=== PATIENT | female | born 1955 | race Caucasian/White ===

== ENCOUNTER 2016-05-11 20:25 | Inpatient (IN) | payer MEDICAID ==
[~2016-05-11] VITALS: Ht 160 cm; Wt 86.0 kg
[2016-05-11 21:37] LABS: BASOPHIL # 0.1 10^3/ul (0.0-0.1); BASOPHILS % 0.3 % (0.0-2.0); CONDITION 1; EOSINOPHILS % 0.1 % (0.0-7.0); HEMATOCRIT 38.3 % (37.0-47.0); HEMOGLOBIN 12.8 g/dl (12.0-16.0); LYMPHOCYTES # 1.5 10^3/ul (0.8-2.9); LYMPHOCYTES % 9.7 % (15.0-51.0); MEAN CORPUSCULAR HEMOGLOBIN 28.5 pg (29.0-33.0); MEAN CORPUSCULAR HGB CONC 33.4 g/dl (32.0-37.0); MEAN CORPUSCULAR VOLUME 85.4 fl (82.0-101.0); MONOCYTE # 0.8 10^3/ul (0.3-0.9); MONOCYTES % 5.3 % (0.0-11.0); NEUTROPHIL # 13.4 10^3/ul (1.6-7.5); NEUTROPHILS % 84.6 % (39.0-77.0); PLATELET COUNT 333 10^3/UL (140-440); RED BLOOD COUNT 4.49 10^6/ul (4.20-5.40); RED CELL DISTRIBUTION WIDTH 13.5 % (11.5-14.5); UNCORRECTED WBC 15.8 10^3/ul (4.8-10.8); WHITE BLOOD COUNT 15.8 10^3/ul (4.8-10.8)
[2016-05-11 21:38] LABS: ADD UMIC YES; URINE BILIRUBIN (Dip) NEGATIVE (NEGATIVE); URINE BLOOD (Dip) 2+ (NEGATIVE); URINE COLOR LT. YELLOW (YELLOW); URINE GLUCOSE (Dip) >=1000 % (NEGATIVE); URINE KETONES (Dip) 15 (NEGATIVE); URINE LEUKOCYTE ESTERASE (Dip) NEGATIVE (NEGATIVE); URINE NITRITE (Dip) NEGATIVE (NEGATIVE); URINE TOTAL PROTEIN (Dip) NEGATIVE (NEGATIVE); URINE UROBILINOGEN (Dip) 0.2 E.U./dL (0.1-1.0)
[2016-05-11 21:41] LABS: ALBUMIN 4.3 g/dl (3.3-4.9); POTASSIUM 3.8 mmol/L (3.5-5.1)
[2016-05-11 21:43] LABS: CREATININE 1.18 mg/dl (0.44-1.00)
[2016-05-11 21:44] LABS: BILIRUBIN,INDIRECT 0.4 mg/dl (0-1.1); BILIRUBIN,TOTAL 0.4 mg/dl (0.2-1.3); CALCIUM 12.7 mg/dl (8.4-10.2); TOTAL PROTEIN 8.6 g/dl (6.1-8.1)
[2016-05-11 22:05] LABS: BACTERIA,URINE FEW; SQUAMOUS EPITHELIAL CELL,UR FEW; URINE RBCS 25-50 /HPF ([, 0])
--- NOTE | 2016-05-11 22:11 | ERA ---
ER Documentation Chief Complaint Date/Time DATE: 05/11/16 TIME: 22:11 Chief Complaint HIGH BLOOD GLUCOSE FROM CLINIC >500 HPI The patient is a 61-year-old female, presenting to the ER because of dizziness, dry mouth for 3 days. She went to the clinic where her glucose was above 500, therefore she was sent to the ER for further evaluation. She is supposed to take Amaryl 4 mg daily, however she did not take the medication for a week. She complains of dizziness, denies fever, neck pain, chest pain, dyspnea, abdominal pain, vomiting, diarrhea, complains of dysuria. She does not smoke, drink Past medical history: Diabetes mellitus Past surgical history: None ROS All systems reviewed and are negative except as per history of present illness. Medications Home Meds Reported Medications Glimepiride* (Amaryl*) 4 Mg Tablet, 4 MG PO WITH BREAKFAST, TAB 05/11/16 Allergies Allergies: Coded Allergies: Penicillins (Unverified Allergy, Unknown, 05/11/16) PMhx/Soc Medical and Surgical Hx: pt denies Surgical Hx Hx Alcohol Use: No Hx Substance Use: No Hx Tobacco Use: No Smoking Status: Unknown if ever smoked Physical Exam Vitals Vital Signs Date Time Temp Pulse Resp B/P Pulse Ox O2 Delivery O2 Flow Rate FiO2 05/11/16 21:10 99.8 92 20 132/81 100 Room Air 05/11/16 20:32 99.8 68 20 123/71 99 Physical Exam Const: No acute distress. Head: Atraumatic. Eyes: Normal Conjunctiva. ENT: Normal External Ears, Nose and Mouth. Neck: Full range of motion. No meningismus. Resp: Clear to auscultation bilaterally. Cardio: Regular rate and rhythm, no murmurs. Abd: Soft, non distended, normal bowel sounds, non tender. Skin: No petechiae or rashes. Back: No midline or flank tenderness. Ext: No cyanosis, or edema. Neur: Awake and alert. No focal deficit Psych: Normal Mood and Affect. Result Diagram: 05/11/16211405/11/162114 Results 24 hrs Laboratory Tests Test 05/11/16 21:15 Alanine Aminotransferase (ALT/SGPT) 14IU/L Albumin 4.3g/dl Albumin/Globulin Ratio 1.00 Alkaline Phosphatase 204IU/L Anion Gap 27 Aspartate Amino Transf (AST/SGOT) 13IU/L Basophils # 0.110^3/ul Basophils % 0.3% Blood Morphology Comment Blood Urea Nitrogen 34mg/dl Calcium Level 12.7mg/dl Carbon Dioxide Level 24mmol/L Chloride Level 88mmol/L Creatine Kinase < 20IU/L Creatinine 1.18mg/dl Direct Bilirubin 0.00mg/dl Eosinophils # 0.010^3/ul Eosinophils % 0.1% Globulin 4.30g/dl Glucose Level 719mg/dl Hematocrit 38.3% Hemoglobin 12.8g/dl Indirect Bilirubin 0.4mg/dl Lipase 103U/L Lymphocytes # 1.510^3/ul Lymphocytes % 9.7% Mean Corpuscular Hemoglobin 28.5pg Mean Corpuscular Hemoglobin Concent 33.4g/dl Mean Corpuscular Volume 85.4fl Mean Platelet Volume 11.0fl Monocytes # 0.810^3/ul Monocytes % 5.3% Neutrophils # 13.410^3/ul Neutrophils % 84.6% Nucleated Red Blood Cells # 0.010^3/ul Nucleated Red Blood Cells % 0.0/100WBC Platelet Count 52327^3/UL Potassium Level 3.8mmol/L Red Blood Count 4.4910^6/ul Red Cell Distribution Width 13.5% Sodium Level 135mmol/L Total Bilirubin 0.4mg/dl Total Protein 8.6g/dl Urine Bacteria FEW Urine Bilirubin NEGATIVE Urine Clarity SLIGHTLY CLOUDY Urine Color LT. YELLOW Urine Glucose >=1000% Urine Hemoglobin 2+ Urine Ketones 15 Urine Leukocyte Esterase NEGATIVE Urine Microscopic RBC 25-50/HPF Urine Microscopic WBC 5-10/HPF Urine Nitrite NEGATIVE Urine Specific [place] 1.010 Urine Squamous Epithelial Cells FEW Urine Total Protein NEGATIVE Urine Urobilinogen 0.2 E.U./dL Urine pH 6.0 White Blood Count 15.810^3/ul Current Medications Medications (Trade) Dose Ordered Sig/Adam Route PRN Reason Start Time Stop Time Status Last Admin Dose Admin Insulin Human Regular 22 unit 22 unit ONCE ONCE SC 05/11/16 22:30 05/11/16 22:31 DC 05/11/16 22:33 Sodium Chloride 1,000 ml @ 1,000 mls/hr Q1H ONCE IV 05/11/16 22:30 05/11/16 23:29 05/11/16 22:31 Sodium Chloride (NS) 1,000 ml @ 1,000 mls/hr Q1H ONCE IV 05/11/16 22:30 05/11/16 23:29 05/11/16 22:31 Procedures/MDM MEDICAL MAKING DECISION: The patient is a 60-year-old female, presenting with acute hyperglycemic hyperosmolar nonketotic state. She was treated with 2 L normal saline, regular insulin 22 units subcutaneously with good response. The differential diagnoses considered include but are not limited to DKA, pneumonia , cystitis, rhabdomyolysis Departure Diagnosis: Primary Impression: Uncontrolled type 2 diabetes mellitus with hyperosmolar nonketotic hyperglycemia Condition: Stable Comments I discussed the findings with the patient. I discussed the patient with the on- call hospitalist Dr. Singh who was made aware of the lab, the treatment, the patient condition. The patient is admitted to telemetry at 11 PM REGAN BROTHERS MD May 11, 2016 22:11
[2016-05-11] MEDS ORDERED: GLIM4TAB55 PO (22:16)
[2016-05-11] MEDS ORDERED: SOD CHLORIDE 0.9% 1,000 ML IV ONE ×2 (22:30)
[2016-05-11] MEDS ORDERED: INSULIN REGULAR, HUMAN 100 UNIT/1 ML 3ML VIAL SC ONE (22:30)
--- NOTE | 2016-05-11 23:23 | RADRPT ---
PROCEDURE: XR Chest. CLINICAL INDICATION: Shortness of breath TECHNIQUE: Single frontal view of the chest was obtained. COMPARISON: None. FINDINGS: The cardiomediastinal silhouette is normal size. Pulmonary vasculature is within normal limits. Th ere is mild increased density in the lateral left lower lung likely relating to overlying soft tissu es.. No signs of pleural fluid or pneumothorax are seen. The osseous structures and soft tissues are unre markable. IMPRESSION: No evidence for active cardiopulmonary disease. RPTAT: HBST .Chetan Fountain MD, MD Date Time Electronically viewed and signed by .Chetan Fountain MD, on 05/11/2016 23:23 .T/
[2016-05-11] MEDS ORDERED: LORAZEPAM 2 MG INJ IV PRN (23:30)
[2016-05-11] MEDS ORDERED: NACL 0.9% 3 ML SYG IV SCH (23:30)
[2016-05-11] MEDS ORDERED: ACETAMINOPHEN 325 MG TAB PO PRN (23:30)
[2016-05-11] MEDS ORDERED: DOCUSATE SODIUM 100 MG CAP PO PRN (23:30)
[2016-05-11] MEDS ORDERED: NITROGLYCERIN (SL) 0.4 MG TAB SL PRN (23:30)
[2016-05-11] MEDS ORDERED: ONDANSETRON 4 MG INJ IV PRN (23:30)
[2016-05-11] MEDS ORDERED: morphine 2 MG INJ IV PRN (23:30)
--- NOTE | 2016-05-11 23:37 | HP ---
Date/Time of Note Date/Time of Note DATE: 05/11/16 TIME: 23:31 Assessment/Plan VTE Prophylaxis VTE Prophylaxis Intervention: LMWH Lines/Catheters IV [facility]ter [facility] (from [facility]): Saline Lock Assessment/Plan Assessment/Plan 61 yo female with a past medical history of type II DM who presents with malaise and hyperglycemia. 1. [facility] - will admit the patient to telemetry - start lantus/novolog, monitor acute mental status changes, IVF, hgba1c, lipid panel, magnesium/TSH levels, diabetic education. 2. Leukocytosis - viral vs reactive - monitor trend - no active infectious site noted 3. Acute on possible chronic renal failure - continue with IVF - most likely due to dehydration 4. Metabolic Acidosis 2/2 #1 - monitor changes 5. GI ppx - pepcid po 6. DVT ppx - lovenox answered all of her questions. as per clinical course. this history and physical took greater then 45 minutes to complete HPI/ROS Admit Date/Time Admit Date/Time 05/11/2016, 11:31 pm Hx of Present Illness 61 yo female with a past medical history of type II DM who presents with malaise and hyperglycemia. As per the patient she has not taken her Amaryl ( Glimepiride) for the last 8 days because she ran out. Since then, she has had polydipsia, polyuria, polyphagia like symptoms. She also complains of generalized weakness, headaches, shortness of breath, diaphoresis, and nausea with no vomiting. She denies any loss of consciousness, fevers/chills, diarrhea/ constipation, sick contacts or other constitutional symptoms. ED course: 22 unit regular insulin, 2 L NS bolus ROS 14 point review of systems completed, please refer to HPI for any positive findings PMH/Family/Social Past Medical History Medical History: diabetes Past Surgical History Past Surgical Hx: cholecystectomy Family History Significant Family History: no pertinent family hx Social History Alcohol Use: none Smoking Status: Never smoker Drug Use: none Exam/Review of Systems Vital Signs Vitals Vital Signs Date Time Temp Pulse Resp B/P Pulse Ox O2 Delivery O2 Flow Rate FiO2 05/11/16 21:10 99.8 92 20 132/81 100 Room Air Exam Exam Gen Tara: mild distress 2/2 to malaise, AAOx4 HEENT: NC/AT, PERRLA, EOMI, no pharyngeal erythema, no tonsillar exudates, no lymphadenopathy, no JVD, no carotid bruits NECK: supple, no thyromegaly THORAX: symmetrical, no obvious deformities CV: S1S2, RRR, no M/G/R Lungs: CTAB no W/C/R/R Abd: soft, NT/ND, +BS, no rebound, no guarding, neg HSM EXT: no edema, no ecchymosis, no clubbing, FROM, bilateral lower extremity varicosities Neuro: CN II-XII grossly intact, no focal deficits Psych: good mentation, alert and oriented, good mood and affect Skin: C/D/I Labs Result Diagram: 05/11/16211405/11/162114 KHALIDA LOCK MD May 11, 2016 23:37
[2016-05-12] MEDS ORDERED: DEXTROSE 50% 50 ML SYRINGE IV PRN ×2 (03:00)
[2016-05-12] MEDS ORDERED: GLUCOSE GEL 15 GRAM TUBE BUCCAL PRN (03:00)
[2016-05-12] MEDS ORDERED: GLUCAGON 1 MG INJ IM PRN (03:00)
[2016-05-12] MEDS ORDERED: GLUCOSE GEL 15 GRAM TUBE PO PRN ×2 (03:00)
[2016-05-12] MEDS: SOD CHLORIDE 0.9% 1,000 ML IV SCH ×2 (03:17→12:50)
[2016-05-12 04:18] LABS: CHOL/HDL RATIO 3.8 RATIO; MAGNESIUM 1.4 mg/dl (1.7-2.5)
[2016-05-12 04:24] LABS: CREATINE KINASE < 20 IU/L (23-200)
[2016-05-12 04:27] LABS: CK-MB 0.88 ng/ml (0.0-2.4)
[2016-05-12 04:30] LABS: TROPONIN-I 0.013 ng/ml (0.00-0.12)
[2016-05-12 04:44] LABS: POTASSIUM 3.1 mmol/L (3.5-5.1)
[2016-05-12 04:46] LABS: CREATININE 0.81 mg/dl (0.44-1.00)
[2016-05-12 04:47] LABS: CALCIUM 12.2 mg/dl (8.4-10.2)
[2016-05-12 04:49] LABS: THYROID STIMULATING HORMONE 0.31 MIU/L (0.465-4.680)
[2016-05-12 04:56] LABS: CK-MB 0.95 ng/ml (0.0-2.4)
[2016-05-12 04:59] LABS: TROPONIN-I 0.015 ng/ml (0.00-0.12)
[2016-05-12 05:20] LABS: BASOPHILS % 0.4 % (0.0-2.0); EOSINOPHILS % 0.3 % (0.0-7.0); HEMATOCRIT 33.9 % (37.0-47.0); HEMOGLOBIN 11.5 g/dl (12.0-16.0); LYMPHOCYTES % 17.1 % (15.0-51.0); MEAN CORPUSCULAR HEMOGLOBIN 28.5 pg (29.0-33.0); MEAN CORPUSCULAR VOLUME 83.8 fl (82.0-101.0); MEAN PLATELET VOLUME 10.1 fl (7.4-10.4); MONOCYTE # 1.1 10^3/ul (0.3-0.9); MONOCYTES % 9.3 % (0.0-11.0); NEUTROPHIL # 8.4 10^3/ul (1.6-7.5); NEUTROPHILS % 72.9 % (39.0-77.0); PLATELET COUNT 314 10^3/UL (140-440); RED BLOOD COUNT 4.05 10^6/ul (4.20-5.40); RED CELL DISTRIBUTION WIDTH 13.1 % (11.5-14.5); UNCORRECTED WBC 11.6 10^3/ul (4.8-10.8); WHITE BLOOD COUNT 11.6 10^3/ul (4.8-10.8)
[2016-05-12 05:29] LABS: CONDITION 1
[2016-05-12] MEDS: INSULIN ASPART [NOVOLOG] 3 ML PEN SC SCH ×7 (08:18→20:44)
[2016-05-12 09:40] VITALS: TEMP 98.6
[2016-05-12] MEDS: FAMOTIDINE 20 MG TAB PO SCH (11:24)
[2016-05-12] MEDS: HEPARIN 5,000 UNIT/0.5 ML SYG SC SCH ×2 (11:26→20:22)
[2016-05-12 11:38] VITALS: Ht 160 cm; Wt 86.0 kg
[2016-05-12] MEDS ORDERED: OXYCODONE/ACETAMINOPHEN (5/325) TAB PO PRN (16:00)
--- NOTE | 2016-05-12 17:21 | PN ---
DATE: 05/12/2016 SUBJECTIVE: Internal medicine followup note. Ms. Davison remains stable following admission from the emergency room. Glucose remained elevated; however, down from 700 to 200 to 300 range. She is tole rating p.o. diet and appears relatively comfortable. PHYSICAL EXAMINATION: VITAL SIGNS: Temperature 98, pulse 83, blood pressure 135/76, O2 saturation 96% on room air. NECK: Supple. No JVD or lymphadenopathy. CARDIAC: S1, S2, no added sounds or murmurs. CHEST: Diminished air entry bilaterally. ABDOMEN: Soft, nontender. No guarding or rebound. EXTREMITIES: No cyanosis, clubbing, edema. NEUROLOGIC: Grossly intact. No focal deficits. LABORATORY DATA: White count 11.6, hemoglobin 11.5, platelets 314, BUN 28, creatinine 0.81. IMPRESSION AND PLAN: 1. A 61-year-old lady with a history of diabetes who had run out of her oral medications. Presente d with severe hyperglycemia, commenced on NovoLog and Lantus now slowly improving glycemic managemen t. The patient to continue with IV insulin for now. May benefit from endocrinology consult and we are HbA1C at present. 2. Continue deep venous thrombosis and gastrointestinal prophylaxis. Continue IV fluids and correc tion of electrolytes. Dictated By: CAMMY GUNTER/BHAVANI Conf#: [id number] DID#: [id number]
[2016-05-12 19:38] VITALS: BP 137/84; RESP 18
[2016-05-12] MEDS: INSULIN GLARGINE [LANtus] 3 ML PEN SC SCH (20:43)
[2016-05-12] MEDS ORDERED: INSULIN ASPART [NOVOLOG] 3 ML PEN SC ONE (21:00)
[2016-05-12 22:13] VITALS: PULSE 84
[2016-05-13] MEDS: ACCUCHECK AT 2AM (Patients on SS coverage) XX SCH (02:11)
[2016-05-13] MEDS ORDERED: INSULIN ASPART [NOVOLOG] 3 ML PEN SC ONE (02:30)
[2016-05-13] MEDS: SOD CHLORIDE 0.9% 1,000 ML IV SCH (05:11)
[2016-05-13 06:38] LABS: CREATININE 0.89 mg/dl (0.44-1.00)
[2016-05-13 06:45] LABS: BASOPHILS % 0.2 % (0.0-2.0); HEMATOCRIT 37.1 % (37.0-47.0); HEMOGLOBIN 12.7 g/dl (12.0-16.0); LYMPHOCYTES # 1.5 10^3/ul (0.8-2.9); LYMPHOCYTES % 11.6 % (15.0-51.0); MEAN CORPUSCULAR HEMOGLOBIN 29.5 pg (29.0-33.0); MEAN CORPUSCULAR HGB CONC 34.1 g/dl (32.0-37.0); MEAN CORPUSCULAR VOLUME 86.5 fl (82.0-101.0); MEAN PLATELET VOLUME 11.2 fl (7.4-10.4); MONOCYTE # 0.8 10^3/ul (0.3-0.9); NEUTROPHIL # 10.9 10^3/ul (1.6-7.5); NEUTROPHILS % 82.2 % (39.0-77.0); PLATELET COUNT 309 10^3/UL (140-440); RED BLOOD COUNT 4.29 10^6/ul (4.20-5.40); RED CELL DISTRIBUTION WIDTH 13.3 % (11.5-14.5); UNCORRECTED WBC 13.2 10^3/ul (4.8-10.8); WHITE BLOOD COUNT 13.2 10^3/ul (4.8-10.8)
[2016-05-13 06:57] LABS: CALCIUM 13.1 mg/dl (8.4-10.2); POTASSIUM 2.7 mmol/L (3.5-5.1)
[2016-05-13 07:20] LABS: CONDITION 1
[2016-05-13 08:10] VITALS: BP 133/83; RESP 20
[2016-05-13] MEDS: POTASSIUM CHLORIDE (SR) 20 MEQ TAB PO SCH ×2 (08:26→21:25)
[2016-05-13] MEDS: FAMOTIDINE 20 MG TAB PO SCH (08:26)
[2016-05-13] MEDS: HEPARIN 5,000 UNIT/0.5 ML SYG SC SCH ×2 (08:27→21:32)
[2016-05-13] MEDS: INSULIN ASPART [NOVOLOG] 3 ML PEN SC SCH ×7 (08:28→21:31)
--- NOTE | 2016-05-13 12:47 | PN ---
Date/Time of Note Date/Time of Note DATE: 05/13/16 TIME: 12:43 Assessment/Plan VTE Prophylaxis VTE Prophylaxis Intervention: other Lines/Catheters IV [facility]ter [facility] (from [facility]): Peripheral IV Assessment/Plan Problems: (1) Hypokalemia Status: Acute Comment: Patient is also hypomagnesemic. I will have to correct this and the potassium she is receiving both oral and IV. In addition I believe she is still a bit dehydrated. She is not ready to be discharged on the basis of this hypokalemia we will recheck her in the morning (2) Hypomagnesemia Status: Acute Comment: She received a dose of IV magnesium to help correct for this which would also help with the hypokalemia (3) Hypercalcemia Status: Chronic Comment: The patient initially stated that she had no known problems with this however when I asked the question from a different direction she states that she has been told about abnormal calcium levels in the bloodstream and in the bones at home in [facility]. This may be elevated due to dehydration either way I am going to try and keep an eye on this. (4) Hypophosphatemia Status: Acute Comment: This is consistent with primary hyperparathyroidism (5) Uncontrolled type 2 diabetes mellitus with hyperosmolar nonketotic hyperglycemia Status: Acute Comment: Adjusting medications to get her under control Subjective 24 Hr Interval Summary Free Text/Dictation Patient pleasant and sitting in bed. Constitutional: no complaints Respiratory: no complaints Cardiovascular: no complaints Gastrointestinal: no complaints Exam/Review of Systems Vital Signs Vitals Vital Signs Date Time Temp Pulse Resp B/P Pulse Ox O2 Delivery O2 Flow Rate FiO2 05/13/16 08:10 97.9 98 20 133/83 98 05/12/16 09:40 Room Air Intake and Output 05/12/16 05/12/16 05/13/16 15:00 23:00 07:00 Intake Total 820 ml 1220 ml Balance 820 ml 1220 ml Exam Constitutional: alert Respiratory: clear to auscultation, normal air movement Cardiovascular: nl pulses, regular rate and rhythm Gastrointestinal: nl liver, spleen, non-tender, soft Results Result Diagram: 05/13/16 0508 05/13/16 0508 Results 24 hrs Laboratory Tests Test 05/12/16 12:44 05/12/16 17:29 05/12/16 20:26 05/13/16 01:58 Bedside Glucose 309 H 242 H 376 H 326 H Test 05/13/16 05:08 05/13/16 07:59 05/13/16 11:53 Anion Gap 20 H Basophils # 0.0 Basophils % 0.2 Blood Morphology Comment Blood Urea Nitrogen 21 H Calcium Level 13.1 *H Carbon Dioxide Level 26 Chloride Level 101 Creatinine 0.89 Eosinophils # 0.0 Eosinophils % 0.0 Glucose Level 283 H Hematocrit 37.1 Hemoglobin 12.7 Lymphocytes # 1.5 Lymphocytes % 11.6 L Magnesium Level 1.0 L Mean Corpuscular Hemoglobin 29.5 Mean Corpuscular Hemoglobin Concent 34.1 Mean Corpuscular Volume 86.5 Mean Platelet Volume 11.2 H Monocytes # 0.8 Monocytes % 6.0 Neutrophils # 10.9 H Neutrophils % 82.2 H Nucleated Red Blood Cells # 0.0 Nucleated Red Blood Cells % 0.0 Phosphorus Level 2.0 L Platelet Count 309 Potassium Level 2.7 *L Red Blood Count 4.29 Red Cell Distribution Width 13.3 Sodium Level 144 White Blood Count 13.2 H Bedside Glucose 262 H 293 H Medications Medications Current Medications Sodium Chloride (NS) 1,000 ml @ 75 mls/hr [id number] IV Last administered on 05/13 05:11; Admin Dose 75 MLS/HR; Start 05/11/16 at 23:27 Lorazepam (Ativan) 0.5 mg Q6H PRN IV ANXIETY; Start 05/11/16 at 23:30 Ondansetron HCl (Zofran Inj) 4 mg Q6H PRN IV NAUSEA AND/OR VOMITING; Start 04/15 at 23:30 Nitroglycerin (Nitroglycerin (Sl Tab) 0.4 Mg) 1 tab Q5M PRN SL CHEST PAIN; Start 05/11/16 at 23:30 Acetaminophen (Tylenol Tab) 650 mg Q6H PRN PO PAIN LEVEL 1-3 OR FEVER; Start at 23:30 Morphine Sulfate (morphine) 2 mg Q4H PRN IV PAIN LEVEL 7-10 Last administered on 05/13/16 08:27; Admin Dose 2 MG; Start 05/11/16 at 23:30 Docusate Sodium (Colace) 100 mg Q12H PRN PO CONSTIPATION; Start 05/11/16 at 23: 30 Famotidine (Pepcid) 20 mg DAILY PO Last administered on 05/13/16 08:26; Admin Dose 20 MG; Start 05/12/16 at 09:00 Insulin Glargine (Lantus) 20 unit HS SC Last administered on 05/12/16 20:43; Admin Dose 20 UNIT; Start 05/12/16 at 21:00 Heparin Sodium (Porcine) (Heparin (5000 Units/0.5 ml)) 5,000 unit BID SC Last administered on 05/13/16 08:27; Admin Dose 5,000 UNIT; Start 05/12/16 at 09:00 Miscellaneous Information 1 ea NOTE XX ; Start 05/12/16 at 03:00 Glucose (Glutose) 15 gm Q15M PRN PO DECREASED GLUCOSE; Start 05/12/16 at 03:00 Glucose (Glutose) 22.5 gm Q15M PRN PO DECREASED GLUCOSE; Start 05/12/16 at 03: 00 Dextrose (D50w Syringe) 25 ml Q15M PRN IV DECREASED GLUCOSE; Start 05/12/16 at 03:00 Dextrose (D50w Syringe) 50 ml Q15M PRN IV DECREASED GLUCOSE; Start 05/12/16 at 03:00 Glucagon (Glucagen) 1 mg Q15M PRN IM DECREASED GLUCOSE; Start 05/12/16 at 03:00 Glucose (Glutose) 15 gm Q15M PRN BUCCAL DECREASED GLUCOSE; Start 05/12/16 at 03 :00 Diagnostic Test (Pha) (Accucheck) 1 ea 02 XX Last administered on 05/13/16 02: 11; Admin Dose 1 EA; Start 05/13/16 at 02:00 Oxycodone/ Acetaminophen (Percocet (5/ 325)) 1 tab Q4H PRN PO PAIN; Start 05/12 at 16:00 Potassium Chloride 40 meq 40 meq BID PO Last administered on 05/13/16 08:26; Admin Dose 40 MEQ; Start 05/13/16 at 09:00; Stop 05/13/16 at 21:01 Magnesium Sulfate 100 ml @ 25 mls/hr ONCE ONCE IVPB ; Start 05/13/16 at 14:30 ; Stop 05/13/16 at 18:29 Potassium Chloride (KCl 40 MEQ/250 ML NS) 250 ml @ 62.5 mls/hr ONCE ONCE IVPB ; Start 05/13/16 at 14:30; Stop 05/13/16 at 18:29 GABO ISAAC MD May 13, 2016 12:47
[2016-05-13] MEDS: POTASSIUM CHLORIDE 20 MEQ in LACTATED RINGER'S 1,000 ML IV SCH ×4 (13:00→21:20)
[2016-05-13] MEDS: metFORMIN 500 MG TAB PO SCH ×2 (13:58→18:08)
[2016-05-13] MEDS ORDERED: POTASSIUM CHLORIDE 250 ML IVPB ONE (14:30)
[2016-05-13] MEDS ORDERED: MAGNESIUM SULFATE 4 GM/100 ML 100 ML IVPB ONE (14:30)
[2016-05-13] MEDS: GLIMEPIRIDE 2 MG TAB PO SCH (18:08)
[2016-05-13 20:00] VITALS: BP 139/80; PULSE 83; RESP 20
[2016-05-13 21:01] VITALS: BP 139/80; RESP 20
[2016-05-13] MEDS: INSULIN GLARGINE [LANtus] 3 ML PEN SC SCH (21:30)
[2016-05-14] MEDS: ACCUCHECK AT 2AM (Patients on SS coverage) XX SCH (02:00)
[2016-05-14 06:18] LABS: ALBUMIN 3.3 g/dl (3.3-4.9)
[2016-05-14 06:19] LABS: POTASSIUM 4.3 mmol/L (3.5-5.1)
[2016-05-14 06:21] LABS: ALBUMIN/GLOBULIN RATIO 0.89; BILIRUBIN,INDIRECT 0.6 mg/dl (0-1.1); BILIRUBIN,TOTAL 0.6 mg/dl (0.2-1.3); CREATININE 0.87 mg/dl (0.44-1.00)
[2016-05-14 06:48] LABS: CALCIUM 13.8 mg/dl (8.4-10.2)
[2016-05-14 07:20] LABS: BASOPHILS % 0.4 % (0.0-2.0); EOSINOPHILS % 0.1 % (0.0-7.0); HEMOGLOBIN 11.3 g/dl (12.0-16.0); LYMPHOCYTES # 1.8 10^3/ul (0.8-2.9); LYMPHOCYTES % 13.3 % (15.0-51.0); MEAN CORPUSCULAR HEMOGLOBIN 28.5 pg (29.0-33.0); MEAN CORPUSCULAR HGB CONC 33.1 g/dl (32.0-37.0); MEAN PLATELET VOLUME 11.8 fl (7.4-10.4); MONOCYTE # 0.8 10^3/ul (0.3-0.9); MONOCYTES % 6.1 % (0.0-11.0); NEUTROPHIL # 10.6 10^3/ul (1.6-7.5); NEUTROPHILS % 80.1 % (39.0-77.0); PLATELET COUNT 296 10^3/UL (140-440); RED BLOOD COUNT 3.96 10^6/ul (4.20-5.40); RED CELL DISTRIBUTION WIDTH 13.3 % (11.5-14.5); UNCORRECTED WBC 13.2 10^3/ul (4.8-10.8); WHITE BLOOD COUNT 13.2 10^3/ul (4.8-10.8)
[2016-05-14 07:36] LABS: CONDITION 1
[2016-05-14 08:11] VITALS: BP 149/86; RESP 16
[2016-05-14] MEDS: FAMOTIDINE 20 MG TAB PO SCH (08:29)
[2016-05-14] MEDS: GLIMEPIRIDE 2 MG TAB PO SCH (08:29)
[2016-05-14] MEDS: metFORMIN 500 MG TAB PO SCH (08:29)
[2016-05-14] MEDS: INSULIN ASPART [NOVOLOG] 3 ML PEN SC SCH ×4 (08:31→12:03)
[2016-05-14] MEDS: HEPARIN 5,000 UNIT/0.5 ML SYG SC SCH (08:32)
[2016-05-14] MEDS ORDERED: METF500T PO (09:40)
--- NOTE | 2016-05-14 09:40 | PDOCDIS ---
Discharge Instructions DIAGNOSIS Discharge Diagnosis: Hyperglycemia; hypercalcemia; CONDITION Patient Condition: Good HOME CARE INSTRUCTIONS: Special Diet: Controlled carb ACTIVITY: Activity Restrictions: Slowly Increase Activity Bathing Restrictions: Shower FOLLOW UP/APPOINTMENTS Appointments She is returning to [facility] on May 21, 2016. She is to seek out her physician there who she does have a relationship with and report to him about our findings hypercalcemia. While this is not emergency is important to be dealt with in the next 6 weeks GABO ISAAC MD May 14, 2016 09:39
--- NOTE | 2016-05-14 09:43 | DS ---
Date/Time of Note Date/Time of Note DATE: 05/14/16 TIME: 09:41 Discharge Summary Admission/Discharge Info Admit Date/Time May 11, 2016 at 23:17 Discharge Date/Time 05/14/2016 Final Diagnosis Diabetes mellitus type 2 out of control secondary to being out of medication; hypercalcemia cause unknownprobable primary hyperparathyroidism; fluid and electrolyte disturbance Patient Condition: Good Hx of Present Illness 61 yo female with a past medical history of type II DM who presents with malaise and hyperglycemia. As per the patient she has not taken her Amaryl ( Glimepiride) for the last 8 days because she ran out. Since then, she has had polydipsia, polyuria, polyphagia like symptoms. She also complains of generalized weakness, headaches, shortness of breath, diaphoresis, and nausea with no vomiting. She denies any loss of consciousness, fevers/chills, diarrhea/ constipation, sick contacts or other constitutional symptoms. ED course: 22 unit regular insulin, 2 L NS bolus Hospital Course Charming 61-year-old [facility] woman who came in with significant hyper glycemia with nonketotic hyperosmolar hyperglycemia without coma. In the course of her workup her dehydration was corrected her hypokalemia was corrected her hypomagnesemia was corrected. She does have hypercalcemia with hypophosphatemia and I believe she has a not yet diagnosed case of primary hyperparathyroidism. She is not in the risk of hypercalcemic crisis and is stable. Because of this time of the opinion that she is stable for discharge with outpatient follow-up. Please note that she is visiting from [facility] and already has return ticket for 1 week from today. As such I am going to have her follow-up with her doctor in [facility]. She is stable for discharge she has no known chemical diseases she is not hazard to herself or others her rehabilitation potential is good and she is competent for medical decision- making Home Meds Active Scripts Metformin Hcl (Glucophage) 500 Mg Tablet, 500 MG PO BID WITH MEALS for 30 Days, TAB Prov:GABO ISAAC MD 05/14/16 Reported Medications Glimepiride* (Amaryl*) 4 Mg Tablet, 4 MG PO WITH BREAKFAST, TAB 05/11/16 Pending Labs Laboratory Tests Test 05/13/16 11:53 05/13/16 13:53 05/13/16 17:12 05/13/16 21:27 Bedside Glucose 293mg/dL (70-220) 285mg/dL (70-220) 232mg/dL (70-220) Ionized Calcium (Measured) 1.8mmol/L (1.1-1.4) Parathyroid Hormone (Intact) pg/ml (7.5-53.5) Test 05/14/16 01:59 05/14/16 05:26 05/14/16 08:15 Bedside Glucose 205mg/dL (70-220) 249mg/dL (70-220) Alanine Aminotransferase (ALT/SGPT) 16IU/L (13-69) Albumin 3.3g/dl (3.3-4.9) Albumin/Globulin Ratio 0.89 Alkaline Phosphatase 115IU/L (42-121) Anion Gap 16 (8-16) Aspartate Amino Transf (AST/SGOT) 24IU/L (15-46) Basophils # 0.010^3/ul (0.0-0.1) Basophils % 0.4% (0.0-2.0) Blood Morphology Comment Blood Urea Nitrogen 20mg/dl (7-20) Calcium Level 13.8mg/dl (8.4-10.2) Carbon Dioxide Level 27mmol/L (21-31) Chloride Level 105mmol/L (97-110) Creatinine 0.87mg/dl (0.44-1.00) Direct Bilirubin 0.00mg/dl (0.00-0.20) Eosinophils # 0.010^3/ul (0.0-0.5) Eosinophils % 0.1% (0.0-7.0) Globulin 3.70g/dl (1.3-3.2) Glucose Level 251mg/dl (70-220) Hematocrit 34.0% (37.0-47.0) Hemoglobin 11.3g/dl (12.0-16.0) Indirect Bilirubin 0.6mg/dl (0-1.1) Lymphocytes # 1.810^3/ul (0.8-2.9) Lymphocytes % 13.3% (15.0-51.0) Mean Corpuscular Hemoglobin 28.5pg (29.0-33.0) Mean Corpuscular Hemoglobin Concent 33.1g/dl (32.0-37.0) Mean Corpuscular Volume 86.0fl (82.0-101.0) Mean Platelet Volume 11.8fl (7.4-10.4) Monocytes # 0.810^3/ul (0.3-0.9) Monocytes % 6.1% (0.0-11.0) Neutrophils # 10.610^3/ul (1.6-7.5) Neutrophils % 80.1% (39.0-77.0) Nucleated Red Blood Cells # 0.010^3/ul (0.0-0.0) Nucleated Red Blood Cells % 0.0/100WBC (0.0-0.0) Platelet Count 82921^3/UL (140-440) Potassium Level 4.3mmol/L (3.5-5.1) Red Blood Count 3.9610^6/ul (4.20-5.40) Red Cell Distribution Width 13.3% (11.5-14.5) Sodium Level 144mmol/L (135-144) Total Bilirubin 0.6mg/dl (0.2-1.3) Total Protein 7.0g/dl (6.1-8.1) White Blood Count 13.210^3/ul (4.8-10.8) GABO ISAAC MD May 14, 2016 09:43
== END 2016-05-14 14:58 | disposition home or self-care (01) | DRG 638 ==
LOC: E/R 20:25 → PP2 23:17
PROVIDERS: ADMIT Student in an Organized Health Care Education/Training Program; ATTEND Student in an Organized Health Care Education/Training Program
DX: E11.00 Type 2 diabetes mellitus with hyperosmolarity without nonketotic hyperglycemic-hyperosmolar coma (NKHHC) (principal); E87.2 Acidosis; E11.65 Type 2 diabetes mellitus with hyperglycemia; E21.0 Primary hyperparathyroidism; E86.0 Dehydration; E87.6 Hypokalemia; E83.42 Hypomagnesemia; Z91.14 Patient's other noncompliance with medication regimen; Z79.4 Long term (current) use of insulin
CPT/HCPCS: 36415; 71010; 80048; 80053; 80061; 81001; 81003; 82330; 82550; 82553; 82962; 83690; 83735; 83930; 83970; 84100; 84443; 84484; 85025; 96372; J1815; J2270; J2405; J3480; J7030; J7120